=== PATIENT | male | born 1990 | race Hispanic/Latino ===

== ENCOUNTER 2023-08-22 12:56 | Emergency (ER) | payer OTHER ==
[~2023-08-22] VITALS: Ht 172.7 cm; Wt 103.4 kg
[2023-08-22] MEDS ORDERED: HYDR-4060 PO ×2 (15:47→16:09)
[2023-08-22] MEDS ORDERED: ACET-2079 PO (15:52)
[2023-08-22] MEDS ORDERED: IBUP-2071 PO (16:09)
[2023-08-22] MEDS: ACETAMINOPHEN WITH CODEINE 1 TAB TAB PO ONE (16:22)
[2023-08-22 16:29] VITALS: BP 121/82; PULSE 100; RESP 18; O2SAT 95
== END 2023-08-22 16:32 | disposition home or self-care (01) ==
LOC: EDH 12:56
DX: S42.002A Fracture of unspecified part of left clavicle, initial encounter for closed fracture (principal); W18.39XA Other fall on same level, initial encounter; Y93.89 Activity, other specified; Y92.89 Other specified places as the place of occurrence of the external cause; Y99.8 Other external cause status
CPT/HCPCS: 73000; 73030